=== PATIENT | male | born 1965 | race Caucasian/White ===

== ENCOUNTER → 2018-08-02 | Outpatient (CLI) | payer OTHER ==
[~2018-08-02] MED LIST: CELEBREX 200 M200 MG PO; PROPANOLOL PO
--- NOTE | 2018-08-04 20:50 | SLEEP ---
[address] [address] SLEEP STUDY REPORT Name: JUANJAKE Haddad Room: [facility]#: [id number] Admission: 08/02/18 Attend Phys: Kristine Polanco DO Discharge: Date of : 67 Report #: [id number] THIS REPORT FOR: //name// CC: Kristine Polanco DO This study has been reviewed in its entirety by a board certified sleep specialist DATE OF SERVICE: 08/02/2018 ATTENDING PHYSICIAN: Kristine Polanco DO. The patient is 53 years old who weighs 180 pounds with a BMI of 24.4. The patient's Damon score was 19. List of the medications was not provided. The patient underwent diagnostic sleep study at [facility] to rule out TANJA. During the night study, the patient spent 418 minutes in bed and slept for 352 minutes with a sleep efficiency of 84%. Sleep latency was 9.8 minutes with a REM latency of 144 minutes. Overall, sleep architecture showed normal stage 1 sleep, increased stage 2 sleep, normal N3 sleep and normal REM sleep. During the night study, the patient had no apneas. There were 6 hypopneas. The patient's apnea-hypopnea index was only 1 per hour. REM related obstructive sleep apnea was not observed. The patient's supine AHI was 1 per hour. EKG monitoring revealed an average heart rate of 63 beats per minute. No sustained arrhythmias observed. PLMS were seen at an index of 50 per hour and 16 per hour caused EEG arousals. Nocturnal oximetry study revealed an average oxygen saturation of 96% with lowest of 91%. No clinically significant desaturation of less than 90% observed. The patient did not meet the criteria for CPAP initiation. IMPRESSION: 1. No clinically significant sleep disordered breathing. The patient's AHI for the entire night was 1 per hour. 2. No clinically significant nocturnal hypoxia. 3. 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 RECOMMENDATIONS: 1. The patient did not meet the criteria for CPAP initiation due [place] [address] SLEEP STUDY REPORT Name: MARTINEZJAKE Catie Room: [facility]#: [id number] Admission: 08/02/18 Attend Phys: Kristine Polanco DO Discharge: Date of : 67 Report #: [id number] 2. The patient has severe subjective hypersomnia. This is not well explained by polysomnographic findings. Consider ruling out other possibilities such as narcolepsy or idiopathic hypersomnia if clinically indicated. The patient will require multiple sleep latency tests to confirm these diagnoses. 3. PLMS did caused EEG arousals. I would recommend that patient should be evaluated for symptoms of restless legs during the day and if present, it can be treated with dopaminergic agonist agents. 4. Avoid MOLD SHIFTER depressants. <ELECTRONICALLY SIGNED> By: Mike U. Hernández, MD 08/04/18 2050 [id number] Tahir Hernández MD /nt
== END ==
LOC: M.SLEEPLAB 20:55
DX: G47.30 Sleep apnea, unspecified (principal); G47.61 Periodic limb movement disorder

== ENCOUNTER → 2018-10-16 | Outpatient (CLI) | payer OTHER | LOC: M.ULTRA 10:00 | DX: M25.562 Pain in left knee (principal); M25.462 Effusion, left knee; M79.605 Pain in left leg ==

== ENCOUNTER → 2019-09-18 | Outpatient (CLI) | payer OTHER | LOC: M.LAB 10:34 | PROVIDERS: ATTEND Orthopaedic Surgery | DX: Z01.812 Encounter for preprocedural laboratory examination (principal) ==